=== PATIENT | female | born 1970 | race Caucasian/White ===

== ENCOUNTER → 2017-10-28 | Outpatient (CLI) | payer OTHER ==
--- NOTE | 2017-10-28 16:46 | XR ---
Bilateral knees HISTORY: Knee pain 4 views of each knee submitted on 6 images. There is joint space loss in the medial compartments, normal alignment within the knees, question int ernally rotated lower extremities however. No evident joint effusion. Bone mineralization is within n ormal limits. Suspect some artifacts are present. No fracture or dislocation. IMPRESSION: Some mild osteoarthritic change suspected
== END | disposition home or self-care (01) ==
LOC: RADXRMAIN 11:37
PROVIDERS: ATTEND Family Medicine
DX: R52 Pain, unspecified (principal); M23.8X9 Other internal derangements of unspecified knee